=== PATIENT | female | born 1970 | race Caucasian/White ===

== ENCOUNTER → 2016-12-24 | Outpatient (CLI) | payer MEDICAID | END | disposition disaster alternative care site (69) | LOC: GAIR 14:57 | DX: R55 Syncope and collapse (principal); R40.20 Unspecified coma; I10 Essential (primary) hypertension; J45.909 Unspecified asthma, uncomplicated; Z79.899 Other long term (current) drug therapy; Z88.7 Allergy status to serum and vaccine | CPT/HCPCS: A0422; A0431; A0436; J2250; J3010; J7030 ==